=== PATIENT | male | born 1960 | race Caucasian/White ===

== ENCOUNTER 2016-09-02 05:31 | Inpatient (IN) | payer OTHER ==
[~2016-09-02] VITALS: Ht 170.2 cm; Wt 98.4 kg
[~2016-09-02 05:31] MED LIST: ADVAIR HFA120 INHALA IH; COMBIVENT RESPIM4 GM IH; CYANOCOBALAM1000 MCG PO; ERGOCALCIF50000 UNIT PO; GABAPENTIN600 MG PO; HYDROCHLOROTHIA25 MG PO; LEVOFLOXACIN750 MG PO; LOVENOX40 MG/0.4 SC; MORPHINE SULFAT15 M1 PO; NEURONTIN800 MG PO; OXYCODONE HCL5 MG PO; PREDNISONE5 M1 PO; PREDNISONE5 MG PO; PROVENTIL,2.5 MG/3 M IH; QVAR 80 MCG IN7.3 GM IH; RANITIDINE HCL150 MG PO; ROXICODONE15 MG PO; SENNA PLUS TAB1 EACH PO; SPIRIVA1 INHALATI IH; VENTOLIN HFA18 GM IH; XANAX0.5 MG PO; ZESTRIL40 MG PO; [UNRECOGNIZED DRUG - CODE] TP
[2016-09-02] MEDS ORDERED: COLCHICINE0.6 M1 PO (06:00)
[2016-09-02 06:02] VITALS: BP 117/80
[2016-09-02 10:48] LABS: HEMATOCRIT 46.1 % (38.0-50.0); MCH 28.2 PG (29.0-34.0); MCHC 32.8 G/DL (30.0-36.0); MEAN PLAT.VOLUME 8.2 uM^3 (9.0-12.4); PLATELET COUNT 267 K/uL (156-360); RBC DIS.WIDTH-CV 13.5 % (11.8-14.6); RED BLOOD COUNT 5.36 M/uL (4.00-5.50); WHITE BLOOD COUNT 11.5 K/uL (4.1-10.2)
[2016-09-02 12:06] VITALS: BP 132/72
[2016-09-02 15:33] VITALS: BP 150/72
[2016-09-02 20:03] VITALS: BP 163/86
[2016-09-02 23:59] VITALS: BP 150/77
[2016-09-03 03:58] VITALS: BP 143/81
[2016-09-03 05:54] LABS: HEMATOCRIT 43.5 % (38.0-50.0); MCV 83.7 FL (86-99)
[2016-09-03 06:53] LABS: ANION GAP 9 MEQ/L (2-14); CHLORIDE 100 MEQ/L (99-109); GFR ESTIMATE (CALCULATED) > 59 mL/min/; GLUCOSE 125 mg/dL (70-99); POTASSIUM 3.8 MEQ/L (3.7-5.4); SAMPLE HEMOLYSIS CHECK 0; SAMPLE ICTERIC CHECK 0; SAMPLE LIPEMIA CHECK 0; SODIUM 135 MEQ/L (136-147); UREA NITROGEN (BUN) 9 mg/dL (9-23)
[2016-09-03 08:00] VITALS: BP 167/82
[2016-09-03 11:39] VITALS: BP 175/98
[2016-09-03 15:42] VITALS: BP 168/92
[2016-09-03 19:59] VITALS: BP 159/94
[2016-09-04 00:22] VITALS: BP 134/86
[2016-09-04 04:30] VITALS: BP 138/85
[2016-09-04 05:34] LABS: HEMATOCRIT 44.7 % (38.0-50.0); MCV 83.7 FL (86-99)
[2016-09-04 08:00] VITALS: BP 125/77
[2016-09-04] MEDS ORDERED: SENNA PLUS TAB1 EACH PO (08:45)
[2016-09-04] MEDS ORDERED: LOVENOX40 MG/0.4 SC (08:48)
[2016-09-04] MEDS ORDERED: CELECOXIB200 MG PO (08:48)
[2016-09-04] MEDS ORDERED: METAXALONE800 MG PO (08:48)
[2016-09-04] MEDS ORDERED: OXYCODONE HCL5 MG PO (08:49)
[2016-09-04] MEDS ORDERED: OXYCONTIN15 MG PO (08:49)
[2016-09-04 11:37] VITALS: BP 152/88
[2016-09-04 15:13] VITALS: BP 171/77
== END 2016-09-04 15:59 | DRG 470 ==
LOC: 2SOUTH → 3WEST 11:49
PROVIDERS: Orthopaedic Surgery
PROC: 0SRD0J9 Replacement of Left Knee Joint with Synthetic Substitute, Cemented, Open Approach (ICD-10-PCS; principal; 2016-09-02)
PROC: 0QPH04Z Removal of Internal Fixation Device from Left Tibia, Open Approach (ICD-10-PCS; principal; 2016-09-02)
DX: M17.12 Unilateral primary osteoarthritis, left knee (principal); Z96.651 Presence of right artificial knee joint; I12.9 Hypertensive chronic kidney disease with stage 1 through stage 4 chronic kidney disease, or unspecified chronic kidney disease; N18.9 Chronic kidney disease, unspecified; J44.9 Chronic obstructive pulmonary disease, unspecified; K21.9 Gastro-esophageal reflux disease without esophagitis; F17.210 Nicotine dependence, cigarettes, uncomplicated; Z98.890 Other specified postprocedural states
CPT/HCPCS: 73560; 80048; 85014; 85018; 85027; 94640; 94640 76; J0690; J1170; J1650; J2405; J7050

== ENCOUNTER 2017-05-11 18:05 | Emergency (ER) | payer OTHER ==
[~2017-05-11] VITALS: Ht 170.2 cm; Wt 104.0 kg
[~2017-05-11 18:05] MED LIST changes: +CELECOXIB200 MG PO; +COLCHICINE0.6 M1 PO; +METAXALONE800 MG PO; +OXYCONTIN15 MG PO
[2017-05-11 18:57] LABS: ADD MIUA? YES; BILIRUBIN NEGATIVE; BLOOD SMALL; COLOR STRAW ((YELLOW)); GLUCOSE (STRIP) NEGATIVE; KETONES NEGATIVE; LEUKOCYTES NEGATIVE; NITRITE NEGATIVE; PROTEIN (STRIP) NEGATIVE; SPECIFIC GRAVITY 1.009 (1.000-1.030); UROBILINOGEN 0.2 MG/DL (0.2-1.0)
[2017-05-11 19:00] LABS: BACTERIA NONE SEEN /HPF; EPITHELIAL CELLS RARE /HPF; MUCUS TRACE /LPF; RED BLOOD CELLS 0-5 /HPF (0-5); WHITE BLOOD CELLS 0-5 /HPF (0-5)
[2017-05-11 19:20] LABS: EOSINOPHIL (%) 0.7 % (0-5); EOSINOPHIL COUNT 0.1 K/uL (0-0.3); HEMATOCRIT 46.8 % (38.0-50.0); IMMATURE GRANULOCYTE COUNT 0.1 K/uL; INSTRUMENT ABS NEUTROPHIL CT 8.6 K/uL; LYMPHOCYTE COUNT 3.6 K/uL (1.0-2.8); MCHC 34.4 G/DL (30.0-36.0); MCV 87.3 FL (86-99); MEAN PLAT.VOLUME 8.4 uM^3 (9.0-12.4); MONOCYTE (%) 7.3 % (3-12); NEUTROPHIL (%) 64.2 % (45-76); NEUTROPHIL COUNT 8.6 K/uL (1.8-6.4); PLATELET COUNT 240 K/uL (156-360); RBC DIS.WIDTH-CV 12.9 % (11.8-14.6); RBC DIS.WIDTH-SD 40.8 % (39-53); RED BLOOD COUNT 5.36 M/uL (4.00-5.50); WHITE BLOOD COUNT 13.4 K/uL (4.1-10.2)
[2017-05-11 19:32] LABS: CHLORIDE 100 mEq/L (99-109); POTASSIUM 3.7 mEq/L (3.7-5.4); SODIUM 136 mEq/L (136-147)
[2017-05-11 19:34] LABS: GLUCOSE 107 mg/dL (70-99)
[2017-05-11 19:36] LABS: ANION GAP 11 MEQ/L (2-14); TOTAL BILIRUBIN 0.5 mg/dL (0.0-1.0)
[2017-05-11 19:38] LABS: ALKALINE PHOSPHATASE 157 IU/L (3-129); GFR ESTIMATE (CALCULATED) 55 mL/min/
[2017-05-11 19:39] LABS: UREA NITROGEN (BUN) 18 mg/dL (9-23)
[2017-05-11 19:40] LABS: DIRECT BILIRUBIN 0.2 mg/dL (0.0-0.3)
[2017-05-11 19:42] LABS: LIPASE 25 U/L (1.0-51.0)
[2017-05-11] MEDS ORDERED: FLAGYL500 MG PO (20:14)
[2017-05-11] MEDS ORDERED: CIPRO500 MG PO (20:14)
[2017-05-11 20:33] VITALS: BP 124/79
== END 2017-05-11 20:35 | disposition home or self-care (01) ==
LOC: EME 18:05
PROVIDERS: Physician Assistant
DX: K57.32 Diverticulitis of large intestine without perforation or abscess without bleeding (principal); N28.9 Disorder of kidney and ureter, unspecified; E86.0 Dehydration; F17.200 Nicotine dependence, unspecified, uncomplicated; Z87.442 Personal history of urinary calculi
CPT/HCPCS: 74176; 80048; 80076; 81003; 83690; 85025; 99281; 99284; J3010

== ENCOUNTER 2017-06-10 10:19 | Day surgery (SDC) | payer OTHER ==
[~2017-06-10] VITALS: Ht 170.2 cm; Wt 98.6 kg
[~2017-06-10 10:19] MED LIST changes: +CIPRO500 MG PO; +FLAGYL500 MG PO
[2017-06-10 10:49] VITALS: BP 132/82
[2017-06-10] MEDS ORDERED: OXYCODONE HCL5 MG PO (13:44)
[2017-06-10] MEDS ORDERED: COLACE100 MG PO (13:44)
[2017-06-10 14:55] VITALS: BP 147/88
[2017-06-10 15:50] VITALS: BP 123/58
[2017-06-10 17:30] VITALS: BP 130/65
== END 2017-06-10 17:44 | disposition home or self-care (01) ==
LOC: SDC
PROC: 0WUF4JZ Supplement Abdominal Wall with Synthetic Substitute, Percutaneous Endoscopic Approach (ICD-10-PCS; principal; 2017-06-10)
DX: K42.9 Umbilical hernia without obstruction or gangrene (principal); I10 Essential (primary) hypertension; J44.9 Chronic obstructive pulmonary disease, unspecified; K21.9 Gastro-esophageal reflux disease without esophagitis; F41.9 Anxiety disorder, unspecified; E78.00 Pure hypercholesterolemia, unspecified; E66.9 Obesity, unspecified; Z68.34 Body mass index [BMI] 34.0-34.9, adult
CPT/HCPCS: 88304; C1781; J0330; J0690; J1100; J1170; J1885; J2001; J2250; J2405; J2710; J2795; J3010; J3475

== ENCOUNTER 2017-10-22 10:24 | Emergency (ER) | payer OTHER ==
[~2017-10-22] VITALS: Ht 170.2 cm; Wt 104.5 kg
[~2017-10-22 10:24] MED LIST changes: +COLACE100 MG PO
[2017-10-22] MEDS ORDERED: IBUPROFEN800 MG PO (13:50)
[2017-10-22] MEDS ORDERED: CLINDAMYCIN HC300 MG PO (13:50)
[2017-10-22] MEDS ORDERED: PERIDEX473 ML MM (13:53)
[2017-10-22 14:14] VITALS: BP 136/84
== END 2017-10-22 14:17 | disposition home or self-care (01) ==
LOC: EME 10:24
PROC: 0C94XZZ Drainage of Buccal Mucosa, External Approach (ICD-10-PCS; principal; 2017-10-22)
DX: K04.7 Periapical abscess without sinus (principal); L03.211 Cellulitis of face; G89.29 Other chronic pain; F17.210 Nicotine dependence, cigarettes, uncomplicated; Z71.6 Tobacco abuse counseling; I10 Essential (primary) hypertension
CPT/HCPCS: 99281; 99284